=== PATIENT | male | born 1965 | race American Indian/Alaskan Native ===

== ENCOUNTER 2017-02-12 08:23 | Emergency (ER) | payer BC ==
[~2017-02-12] VITALS: Ht 172.7 cm; Wt 75.8 kg
[2017-02-12] MEDS ORDERED: LEVOTHYROXINE0.05 MG PO (08:38)
[2017-02-12] MEDS ORDERED: AMBIEN 5 MG TABL5 M1 PO (08:39)
[2017-02-12] MEDS ORDERED: TRAZODONE HCL50 MG PO (08:39)
[2017-02-12] MEDS ORDERED: NORCO 5-325 TA1 EACH PO (09:50)
[2017-02-12 10:39] VITALS: BP 147/108
== END 2017-02-12 10:40 | disposition home or self-care (01) ==
LOC: ER 08:23
DX: S43.085A Other dislocation of left shoulder joint, initial encounter (principal); F17.210 Nicotine dependence, cigarettes, uncomplicated; F10.99 Alcohol use, unspecified with unspecified alcohol-induced disorder; X58.XXXA Exposure to other specified factors, initial encounter; Y93.89 Activity, other specified; Y92.89 Other specified places as the place of occurrence of the external cause; Y99.8 Other external cause status